=== PATIENT | female | born 1960 | race Caucasian/White ===

== ENCOUNTER 2019-12-16 00:59 | Inpatient (IN) | payer MEDICARE, BC, SELFPAY ==
[2019-12-16] VITALS (58 sets, daily range): BP systolic 74–126; BP diastolic 36–72; PULSE 61–90; RESP 14–31; TEMP 36.6–39.6; O2SAT 93–100; BMI 51.5
--- NOTE | ~2019-12-16 | XR_ITS ---
XR chest 1V portable DATE: 12/16/2019 01:47 INDICATION: Fever TECHNIQUE: Portable AP chest on 12/16/2019 at 0146 hours COMPARISON: None FINDINGS: Right internal jugular central venous catheter tip overlies the right brachiocephalic vein. No pneumothorax. There is moderate elevation of the right leaf of the diaphragm. Heart size is not optimally evaluated on AP projection because of magnification. Pulmonary vascular r edistribution is noted, which may indicate mild pulmonary venous hypertension in this upright radiogr aph. No pulmonary infiltrate or consolidation, pleural effusion or pulmonary vascular congestion or p neumothorax is evident. Osteopenia. IMPRESSION: Right internal jugular central venous catheter in right brachiocephalic vein Pulmonary vascular redistribution may indicate mild pulmonary venous hypertension Elevated right diaphragm No active pulmonary disease is evident Reviewed, dictated and finalized at location A. IMPRESSION: Right internal jugular central venous catheter in right brachioceph alic vein Pulmonary vascular redistribution may indicate mild pulmonary venous hypertensi on Elevated right diaphragm No active pulmonary disease is evident
--- NOTE | ~2019-12-16 | US_ITS ---
EXAMINATION: US venous doppler LE RT DATE: 12/16/2019 13:58 INDICATION: Right lower limb pain. TECHNIQUE: Grayscale ultrasound images without and with compression and Doppler ultrasound images of the right lower extremity veins were obtained. COMPARISON: None. FINDINGS: The visualized portions of right common femoral vein, profunda (deep) femoral vein, femoral vein, pop liteal vein, peroneal veins, posterior tibial veins, and greater saphenous vein outflow are patent. IMPRESSION: 1. No deep venous thrombosis. Reviewed, dictated and finalized at location A.
--- NOTE | 2019-12-16 01:07 | ED.WEAKNESS ---
HPI - Weakness General Chief complaint: Weakness Stated complaint: weak History of Present Illness HPI Narrative: 58 yo female w/ h/o lymphoma currently on chemotherapy presents for weakness. She was driving back home after a road trip when she became lethargic, weak, and confused. He daughter thought that she may just be tired from the drive and they stopped at a hotel. Her symptoms did not improve with rest. On arrival here she was found to have a temperature of 103. Her daughter does report recent UTI and previous episodes of fever where no source was found. No abdominal pain, nausea, vomiting, chest pain, SOB, cough, rash. Related Data Home Medications Medication Instructions Recorded Confirmed Unable to Obtain Home Medications 12/16/19 12/16/19 Allergies Allergy/AdvReac Type Severity Reaction Status Date / Time morphine Allergy Difficulty Verified 12/16/19 01:14 Breathing Review of Systems Review of Systems: All systems reviewed & are unremarkable except as noted in HPI and below Cardiovascular: Cardiovascular: Denies chest pain Respiratory: Respiratory: Denies dyspnea and Denies wheezing Gastrointestinal: Gastrointestinal: Denies abdominal pain, Denies diarrhea, Denies nausea and Denies vomiting Genitourinary: Genitourinary: Denies hematuria and Denies dysuria Neurologic: Denies headache(s) and Denies focal weakness [facility] Past Medical History Medical History (Updated 12/16/19 @ 05:32 by Napoleon Karimi MD) Lymphoma Surgical History Surgical History (Updated 12/16/19 @ 04:23 by Napoleon Karimi MD) History of splenectomy Social History Social History (Updated 12/16/19 @ 04:23 by Napoleon Karimi MD) Smoking status: Never smoker Exam Const: General: alert Nutritional Appearance: obese morbidly obese Orientation/consciousness: patient oriented x3 HENMT: Head: normal to inspection Eyes: Conjunctivae: conjunctivae normal Pupils: Equal, round and reactive pupils present EOM: EOMs intact bilaterally Neck: Neck: normal visual inspection Resp: Effort & Inspection: normal respiratory effort Auscultation: clear to auscultation bilaterally Cardio: Rate: regular rate Rhythm: regular rhythm GI: GI Palp: Yes Soft to palpation and No Tenderness to palpation present (GI) Skin: General skin exam: normal color Rashes: no rashes Wounds: no wounds Neuro: General: patient oriented x3, moves all extremities and CN's II-XI intact bilaterally Other: occasionally stumbles over words, but no significant deficit Extrem: General: edema bilateral Course Vital Signs Vital signs: Vital Signs Temperature 39.6 C H 12/16/19 00:57 Pulse Rate 90 12/16/19 00:57 Respiratory Rate 20 12/16/19 00:57 Blood Pressure 93/40 L 12/16/19 00:57 Pulse Oximetry 94 12/16/19 00:57 Temperature 37.9 C H 12/16/19 03:19 Pulse Rate 76 12/16/19 05:20 Respiratory Rate 21 H 12/16/19 05:20 Blood Pressure 100/51 L 12/16/19 05:20 Pulse Oximetry 95 12/16/19 05:20 MDM - Weakness MDM Narrative Medical decision making narrative: Sepsis, UTI, pneumonia, dehydration, COVID-19, other She has no symptoms localizing infection. UA not convincing for infection. No obvious infiltrate on x-ray. BP trending down despite adequate hydration. I will start broad spectrum antibiotics given the severity of her illness and immune compromised state. I will start levophed o maintain blood pressure and admit to the ICU. Case discussed with Dr. Swan Medical Records Attestation: I reviewed the patient's medical records. Lab Data Attestation: I reviewed the patient's lab results. Result diagrams: 12/16/19 01:35 12/16/19 01:34 Labs: Lab Results 12/16/19 12/16/19 12/16/19 Range/Units 01:34 01:34 01:35 WBC 14.2 H (4.5-10.0) K/mm3 RBC 3.11 L (4.2-5.4) M/mm3 Hgb 10.2 L (12.0-15.0) g/dL Hct 30.8 L (37.0-47.0) % MCV 99.0 (80-100) fl
--- NOTE | 2019-12-16 01:21 | ECG_ITS ---
Measurements Intervals [place] Rate: 89 P: 5 IN: 186 QRS: 17 QRSD: 106 T: 7 QT: 320 QTc: 391 Interpretive Statements SINUS RHYTHM BASELINE ARTIFACT- I, II, III, AVR, AVL, AVF, V1-V6 BORDERLINE ECG Electronically Signed On 12-16-2019 7:04:49 CDT by Zaki Mendez D.O.
[2019-12-16 01:46] LABS: Basophils Absolute Auto 0.1 K/mm3 (0.0-0.1); Basophils Percent Auto 0.4 % (0.2-1.2); Eosinophils Percent Auto 0.1 % (0-4.4); Hematocrit 30.8 % (37.0-47.0); Hemoglobin 10.2 g/dL (12.0-15.0); Immature Granulocyte Absolute 0.89 K/mm3 (0.00-0.031); Immature Granulocyte Percent A 6.3 % (0-0.5); Lymphocytes Absolute Auto 3.26 K/mm3 (0.9-3.2); Mean Corpuscular HGB Conc 33.1 g/dl (32-36); Mean Corpuscular Hemoglobin 32.8 pg (26-34); Mean Platelet Volume 10.9 fl (7.4-10.4); Monocytes Absolute Auto 0.6 K/mm3 (0.1-0.6); Monocytes Percent Auto 4.3 % (2.6-8.5); Neutrophils Absolute Auto 9.4 K/mm3 (1.3-6.7); Neutrophils Percent Auto 65.9 % (45.5-73.1); Nucleated Red Blood Cells Absolute Auto 0.1 K/mm3 (0.0-0.012); Nucleated Red Blood Cells Perc 0.7 % (0.0-0.2); Platelet Count Result 227 k/mm3 (150-375); Red Blood Count 3.11 M/mm3 (4.2-5.4); Red Cell Distribution Width 15.6 % (11.5-14.5); White Blood Count 14.2 K/mm3 (4.5-10.0)
[2019-12-16 01:56] LABS: INR 1.1; Partial Thromboplastin Time 26.9 SECONDS (22.3-36.8); Prothrombin Time 14.2 Seconds (11.1-14.7)
[2019-12-16 01:59] LABS: Lactic Acid Reflex 0.9 mmol/L (0.7-2.1)
[2019-12-16 02:00] LABS: Anisocytosis 1+ (NORMAL); Platelet Estimate Adequate (Adequate)
[2019-12-16 02:02] LABS: Alanine Aminotransferase 22 U/L (4-35); Albumin Level 3.5 g/dL (3.5-5.1); Alkaline Phosphatase 61 U/L (38-126); Anion Gap 13.4 mmol/L (7-16); Aspartate Amino Transferase 43 U/L (14-36); Blood Urea Nitrogen 46 mg/dL (7-17); CRP 8.7 mg/dL (<1.0); Calcium 8.5 mg/dL (8.4-10.2); Carbon Dioxide 18 mmol/L (22-30); Chloride 106 mmol/L (98-107); Estimated CRCL calculation 33 ml/min; Estimated Glomerular Filt Rate 22; Glucose 160 mg/dL (65-105); Potassium 4.4 mmol/L (3.4-5.0); Sodium 133 mmol/L (137-145)
[2019-12-16 02:24] LABS: Add Urine Microscopic? YES; Appearance Urine Clear (Clear); Bilirubin Urine Negative (Negative); Blood Urine 1+ (Negative); Color Urine Yellow (Yellow); Glucose Urine UA Negative (Negative); Ketones Urine Negative (Negative); Leukocyte Esterase Ur Negative LEU/UL (Negative); Nitrate Urine Negative (Negative); Protein Urine Negative (Negative); Specific Grav Ur 1.012 (1.001-1.035); Squamous Epithelial Cell Urine Rare /hpf (Few); Urobilinogen Urine Negative mg/dL (<2.0)
--- NOTE | 2019-12-16 03:42 | PC.NURSE ---
1000 MLS OF EMS NS INFUSED COMPLETELY W/O DIFFICULTY, 3000 MLS OF ED NS INFUSED W/O DIFFICULTY, IN ADDITION 100 MLS OF OFIRMEV 1 GRAM TO EQUAL 4100 TOTAL MLS INFUSED AT THE TIME OF THIS NOTE BEING WRITTEN.
[2019-12-16] MEDS: NOREPINEPHRINE 8 MG/D5W 250 ML 8 MG/250 ML BAG 9.4 MG IV CONT (04:44)
[2019-12-16] MEDS: LACTATED RINGERS 1,000 ML 75 ML IV CONT ×2 (11:00→23:25)
--- NOTE | 2019-12-16 11:34 | ADMGEN ---
This patient, Elzbieta Wynn, was admitted to Intensive Care Unit-9. Patient/family oriented to hospital policies and general routines including ID bracelet, bed and alarms, visiting hours, pain management, procedures, bathroom and other care routines, personal items, smoking policy, room service/diet, and visiting hours. Valuables list has been completed. Information on how to activate the Rapid Response Team has been discussed. Patient/Family are encouraged to report perceived risks to care and to ask questions if they do not understand what they are told or what they should do.
--- NOTE | 2019-12-16 12:55 | WPDCNINT ---
Assessment and Plan Assessment and plan (1) Septic shock: Code(s): A41.9 - Sepsis, unspecified organism; R65.21 - Severe sepsis with septic shock Status: Acute Assessment and Plan: patient presented with leukocytosis, fevers, confusion, lethargy and weakness - she was hypotensive with fevers of 103.0 in the ED - was given IV fluids per sepsis protocol - currently on maintenance IV fluids - likely source right lower extremity cellulitis - continue Zosyn and vancomycin, patient on oral chemotherapy - patient on Levophed, maintain mean arterial pressures greater than 65 mmHg - blood cultures have been obtained (2) Cellulitis of right lower extremity: Code(s): L03.115 - Cellulitis of right lower limb Status: Acute Assessment and Plan: cellulitis of right lower extremity, continue antibiotics as above - will obtain venous Dopplers to rule out DVT as patient has lymphoma and is on chemotherapy, also has been traveling in a car and driving long distance [place] to [place] (3) Acute worsening of stage 3 chronic kidney disease: Code(s): N18.3 - Chronic kidney disease, stage 3 (moderate) Status: Acute Assessment and Plan: acute on chronic kidney disease likely related to septic shock, hypotension, hypovolemia - patient received adequate amount of IV fluids in the ER, continue maintenance IV fluid - monitor urine output, Wade catheter inserted - continue to monitor renal function, electrolytes (4) Lymphoma: Code(s): C85.90 - Non-Hodgkin lymphoma, unspecified, unspecified site Status: Acute Assessment and Plan: patient on ibrutinib, will hold chemotherapy for now - follows up with Dr.Bilal Merino, oncologist in [place], [place] (5) Essential hypertension: Code(s): I10 - Essential (primary) hypertension Status: Acute Assessment and Plan: hold home carvedilol, furosemide as patient currently on pressors (6) DVT prophylaxis: Code(s): Z29.9 - Encounter for prophylactic measures, unspecified Status: Acute Additional Plan discussed with patient at length and updated her with her condition and plan. I answered all questions code status: Full code critical care time spent: 44 minutes Due to a high probability of clinically significant, life threatening deterioration, the patient required my highest level of preparedness to intervene emergently and I personally spent this critical care time directly and personally managing the patient. This critical care time included obtaining a history; examining the patient; pulse oximetry; ordering and review of studies; arranging urgent treatment with development of a management plan; evaluation of patient's response to treatment; frequent reassessment; and discussions with other providers. It was exclusive of separately billable procedures and treating other patients and teaching time. Please see Assessment and Plan section and the rest of the note for further information on patient assessment and treatment Doorkeeper Consult Note Consult date: 12/16/19 Time Seen: 10:51 Reason for consult: septic shock, right lower extremity cellulitis HPI: Elzbieta Wynn is a 58 year old female with significant past medical history lymphoma on daily oral chemotherapy, stage 3-4 chronic kidney disease, essential hypertension, history of gastric bypass, appendectomy, cholecystectomy and splenectomy presented to the ED on 12/16/2019 in the early hours with weakness, lethargy, confusion. Patient seen in the ICU upon arrival, is awake, alert, oriented x3, nonfocal, able also all questions appropriately at this time. She stated that she was traveling from [place] to [place] to see her sister. She was wearing a mask all the time and observing social distant single as much as possible. She states none of the people she was in contact were sick. Patient was traveling back from [place] to [facility] [place]
[2019-12-16] MEDS: HEPARIN SODIUM 5,000 UNITS/ML VIAL 5000 UNITS SUB-Q ×2 (16:06→20:41)
[2019-12-16] MEDS: CENTRAL LINE FLUSH 10 ML IV PUSH ×3 (16:06→20:41)
--- NOTE | 2019-12-16 16:42 | PM.IMHP ---
H&P: HPI History of Present Illness Chief complaint: Septic shock Narrative: Elzbieta Wynn is a 58 year old female was in [facility] yesterday sunday evening was visiting cousin on sunday, trembling and shaking was not feeling good talking garble, felt her R leg feels sore up to the knee felt warm Pt not having any cough, slight fever in er 103. denies sob tested for the covid. bp is low at the moment fluctuations low. Seen by ICU MD already. Awaiting BC and covid tests. Pt complains of pain when she bends her knee and R leg. Another daughter lives in [place], recent [place] in [place] in [place]. was told no damage to her heart, pt has history of Stage 4 CKD. Pt feels dehydrated. Nephrology is been consulted. 2nd bout of lymphoma tried monoclonal antibodies pt is just on imbruvica everyday now. Pt states she was meant to a ctscan. Pt would like to leave on to get her ct scan in [place] under her oncology. Pt states she does not feel like she has the covid, thinks fever is from her leg. Review of Systems Review of Systems: All systems reviewed & are unremarkable except as noted in HPI and below PMFSH Past Medical History Medical History Lymphoma Surgical History Surgical History History of splenectomy Social History Social History Smoking status: Never smoker Second hand tobacco smoke exposure: No Alcohol intake: never Substance use: never Substance use type: other Gender identity (if verbalized by the patient): Female Spiritual care concerns: No Meds Home Medications and Allergies Home Medications Medication Instructions Recorded Confirmed Type allopurinol 300 mg PO DAILY 12/16/19 12/16/19 History aspirin 81 mg PO DAILY 12/16/19 12/16/19 History calcitriol 0.25 mcg PO DAILY 12/16/19 12/16/19 History carvedilol 25 mg PO TID 12/16/19 12/16/19 History duloxetine 30 mg PO DAILY 12/16/19 12/16/19 History furosemide 20 mg PO DAILY 12/16/19 12/16/19 History gabapentin 300 mg PO BID 12/16/19 12/16/19 History hydroxyzine HCl 25 mg PO QPM PRN 12/16/19 12/16/19 History ibrutinib [Imbruvica] 420 mg PO 1130 12/16/19 12/17/19 History lorazepam 0.5 mg PO DIRECTED PRN 12/16/19 12/16/19 History mirabegron [Myrbetriq] 50 mg PO DAILY 12/16/19 12/16/19 History pantoprazole 40 mg PO DAILY 12/16/19 12/16/19 History prochlorperazine maleate 10 mg PO DIRECTED PRN 12/16/19 12/16/19 History vitamin [id number] acid 1 tablet PO DAILY 12/16/19 12/16/19 History Allergies Allergy/AdvReac Type Severity Reaction Status Date / Time morphine Allergy Difficulty Verified 12/16/19 01:14 Breathing Vital Signs Vital Signs - 24 hr 12/16/19 00:57 12/16/19 03:19 12/16/19 04:00 Temperature 39.6 C H 37.9 C H Pulse Rate 90 82 74 Respiratory Rate 20 24 H 20 Blood Pressure 93/40 L 82/36 L 74/38 L Pulse Oximetry 94 95 95 12/16/19 04:01 12/16/19 04:44 12/16/19 05:02 Temperature Pulse Rate 74 80 76 Respiratory Rate 22 H Blood Pressure 87/43 L Pulse Oximetry 96 12/16/19 05:08 12/16/19 05:15 12/16/19 05:20 Temperature Pulse Rate 78 75 76 Respiratory Rate 20 21 H Blood Pressure 90/48 L 100/51 L Pulse Oximetry 93 95 12/16/19 05:30 12/16/19 05:45 12/16/19 05:50 Temperature Pulse Rate 76 77 77 Respiratory Rate 22 H 20 22 H Blood Pressure 98/48 L Pulse Oximetry 95 96 95 12/16/19 06:12 12/16/19 06:15 12/16/19 06:30 Temperature 37.6 C H Pulse Rate 77 76 81 Respiratory Rate 23 H 24 H 26 H Blood Pressure 111/47 L 106/48 L Pulse Oximetry 98 96 96 12/16/19 06:31 12/16/19 06:41 12/16/19 06:45 Temperature Pulse Rate 79 78 77 Respiratory Rate 21 H 23 H Blood Pressure 106/48 L 103/48 L Pulse Oximetry 100 99 97 12/16/19 06:46 12/16/19 06:50 12/16/19 06:51 Temperature Pulse Rate 83 80 80 Respiratory Rat
[2019-12-16] MEDS: GABAPENTIN 300 MG CAPSULE PO (20:41)
[2019-12-16] MEDS: NOREPINEPHRINE 8 MG/D5W 250 ML 8 MG/250 ML BAG 7.5 MG IV CONT (23:24)
[2019-12-17] VITALS (11 sets, daily range): BP systolic 90–108; BP diastolic 43–79; PULSE 59–81; RESP 16–26; TEMP 36.6–37.1; O2SAT 95–100
[2019-12-17] MEDS: HEPARIN SODIUM 5,000 UNITS/ML VIAL 5000 UNITS SUB-Q ×3 (05:04→20:36)
[2019-12-17] MEDS: CENTRAL LINE FLUSH 10 ML IV PUSH ×2 (05:05→20:36)
[2019-12-17 05:22] LABS: Basophils Percent Auto 0.3 % (0.2-1.2); Eosinophils Absolute Auto 0.2 K/mm3 (0-0.3); Eosinophils Percent Auto 1.4 % (0-4.4); Hematocrit 25.2 % (37.0-47.0); Hemoglobin 8.4 g/dL (12.0-15.0); Immature Granulocyte Absolute 0.34 K/mm3 (0.00-0.031); Immature Granulocyte Percent A 2.4 % (0-0.5); Lymphocytes Absolute Auto 3.23 K/mm3 (0.9-3.2); Mean Corpuscular HGB Conc 33.3 g/dl (32-36); Mean Corpuscular Hemoglobin 32.7 pg (26-34); Mean Corpuscular Volume 98.1 fl (80-100); Mean Platelet Volume 10.6 fl (7.4-10.4); Monocytes Absolute Auto 0.9 K/mm3 (0.1-0.6); Monocytes Percent Auto 6.1 % (2.6-8.5); Neutrophils Absolute Auto 9.4 K/mm3 (1.3-6.7); Neutrophils Percent Auto 66.8 % (45.5-73.1); Nucleated Red Blood Cells Perc 0.3 % (0.0-0.2); Platelet Count Result 184 k/mm3 (150-375); Red Blood Count 2.57 M/mm3 (4.2-5.4); Red Cell Distribution Width 15.8 % (11.5-14.5)
[2019-12-17 05:45] LABS: Alanine Aminotransferase 21 U/L (4-35); Albumin Level 2.6 g/dL (3.5-5.1); Alkaline Phosphatase 48 U/L (38-126); Anion Gap 9.6 mmol/L (7-16); Aspartate Amino Transferase 60 U/L (14-36); Bilirubin,Total 0.8 mg/dL (0.2-1.3); Blood Urea Nitrogen 49 mg/dL (7-17); Calcium 8.1 mg/dL (8.4-10.2); Carbon Dioxide 19 mmol/L (22-30); Chloride 109 mmol/L (98-107); Estimated CRCL calculation 30 ml/min; Estimated Glomerular Filt Rate 19; Glucose 118 mg/dL (65-105); Magnesium 1.8 mg/dL (1.6-2.3); Phosphorus 5.4 mg/dL (2.5-4.5); Potassium 3.6 mmol/L (3.4-5.0); Sodium 134 mmol/L (137-145)
[2019-12-17] MEDS: allopurinoL 300 MG TABLET PO (08:11)
[2019-12-17] MEDS: GABAPENTIN 300 MG CAPSULE PO ×2 (08:11→20:36)
[2019-12-17] MEDS: CYANOCOBALAMIN 500 MCG TABLET PO (08:11)
[2019-12-17] MEDS: ASPIRIN 81 MG CHEWABLE TABLET PO (08:11)
[2019-12-17] MEDS: DULoxetine HCL 30 MG CAPSULE.DR PO (08:11)
[2019-12-17] MEDS: FOLIC ACID 0.4 MG TABLET PO (08:12)
[2019-12-17] MEDS: calcitrioL 0.25 MCG CAPSULE PO (08:12)
--- NOTE | 2019-12-17 08:14 | PC.NURSE ---
Pt on 2mcg/min of Levophed when assessing. Levophed placed on pause. Previous RN didn't chart the decrease on the MAR from 4 to 2
--- NOTE | 2019-12-17 11:08 | PCOTNOTE ---
Attempted OT evaluation. Hold per nursing, will continue to attempt.
--- NOTE | 2019-12-17 11:09 | PCPTNOTE ---
Attempted PT eval. Per Lucy GUNN, stated to hold therapy today.
[2019-12-17] MEDS: LACTATED RINGERS 1,000 ML 75 ML IV CONT (11:41)
--- NOTE | 2019-12-17 12:02 | PHAR ---
HOME MED VERIFIED = [facility] [id number] IBRUVICA 420 MG TABS 1 TAB PO DAILY.
[2019-12-17 14:41] LABS: SARS-CoV-2 RNA PCR Negative
--- NOTE | 2019-12-17 14:45 | WPDINTPN ---
Progress Note: A&P Assessment and Plan (1) Septic shock: Code(s): A41.9 - Sepsis, unspecified organism; R65.21 - Severe sepsis with septic shock Status: Acute Assessment and Plan: patient presented with leukocytosis, fevers, confusion, lethargy and weakness - she was hypotensive with fevers of 103.0 in the ED - was given IV fluids per sepsis protocol - currently on maintenance IV fluids - likely source right lower extremity cellulitis - continue Zosyn and vancomycin, patient on oral chemotherapy - OFF LEVOPHED since early this morning - blood and urine cultures are negative so far (2) Cellulitis of right lower extremity: Code(s): L03.115 - Cellulitis of right lower limb Status: Acute Assessment and Plan: cellulitis of right lower extremity, continue antibiotics as above - right lower extremity venous Dopplers were negative for DVT (3) Acute worsening of stage 3 chronic kidney disease: Code(s): N18.3 - Chronic kidney disease, stage 3 (moderate) Status: Acute Assessment and Plan: acute on chronic kidney disease likely related to septic shock, hypotension, hypovolemia - patient received adequate amount of IV fluids in the ER, continue maintenance IV fluid - monitor urine output, Wade catheter inserted - continue to monitor renal function, electrolytes (4) Lymphoma: Code(s): C85.90 - Non-Hodgkin lymphoma, unspecified, unspecified site Status: Acute Assessment and Plan: patient on ibrutinib, will hold chemotherapy for now - follows up with Dr.Bilal Merino, oncologist in [place], [place] (5) Essential hypertension: Code(s): I10 - Essential (primary) hypertension Status: Acute Assessment and Plan: hold home carvedilol, furosemide as patient currently on pressors (6) DVT prophylaxis: Code(s): Z29.9 - Encounter for prophylactic measures, unspecified Status: Acute Assessment and Plan: heparin SQ Additional Plan discussed with patient at length and updated her with her condition and plan. I answered all questions code status: Full code critical care time spent: 33 minutes Due to a high probability of clinically significant, life threatening deterioration, the patient required my highest level of preparedness to intervene emergently and I personally spent this critical care time directly and personally managing the patient. This critical care time included obtaining a history; examining the patient; pulse oximetry; ordering and review of studies; arranging urgent treatment with development of a management plan; evaluation of patient's response to treatment; frequent reassessment; and discussions with other providers. It was exclusive of separately billable procedures and treating other patients and teaching time. Please see Assessment and Plan section and the rest of the note for further information on patient assessment and treatment Subjective Date/time seen: 12/17/19 14:45 Interval history: Reason for consult: septic shock, right lower extremity cellulitis - 12/16/2019 and right lower extremity venous Doppler: negative for DVT 12/17/2019: Patient seen examined, off Levophed early this morning. Blood pressures remain stable. Patient is awake, alert, oriented x3, nonfocal. Able to answer questions appropriately. Patient denies any chest pain, shortness of breath, abdominal pain, nausea vomiting at this time. Just states that she has getting a little stiff because of her arthritis. Urine output has been adequate. Patient is afebrile, kidney function. C-reactive protein is 32.0. SARS-CoV-2 PCR PCR pending Review of Systems Review of Systems: All systems reviewed & are unremarkable except as noted in HPI and below Exam Const: General: comfortable and no acute distress HENMT: Mouth: Yes moist mucous membranes Eyes: Sclera: sclerae normal Pupils: Equal, round and reactive pupils present N
--- NOTE | 2019-12-17 15:56 | PM.IMPN ---
Progress Note: A&P Assessment and Plan (1) Essential hypertension: Code(s): I10 - Essential (primary) hypertension Status: Acute Assessment and Plan: Hold bp medications Pt bp is low Secondary to septic shock (2) Lymphoma: Code(s): C85.90 - Non-Hodgkin lymphoma, unspecified, unspecified site Status: Acute Assessment and Plan: pt has 2 relapses in the past pt is on imbruvica (3) Acute worsening of stage 3 chronic kidney disease: Code(s): N18.3 - Chronic kidney disease, stage 3 (moderate) Status: Acute Assessment and Plan: Likely secondary to dehydration continue to watch kidney function Creat is 2.6 today (4) DVT prophylaxis: Code(s): Z29.9 - Encounter for prophylactic measures, unspecified Status: Acute Assessment and Plan: Pt is on heparin (5) Cellulitis of right lower extremity: Code(s): L03.115 - Cellulitis of right lower limb Status: Acute Assessment and Plan: likely cause of septic shock covid less bc but pt has history of lymphoma so is being investigated Venous doppler is negative (6) Septic shock: Code(s): A41.9 - Sepsis, unspecified organism; R65.21 - Severe sepsis with septic shock Status: Acute Assessment and Plan: Admitted with septic shock in ED Bp still remains to be low continue to watch continue vasopressors and iv fluids continue iv zosyn and iv vancomycin Subjective Date/time seen: 12/17/19 15:56 Interval history: 58 year old female admitted with shakes, fever and low bps admitted to icu for septic shock pt has history of lymphoma and appears to have right leg cellultis awaiting covid test very pleasant lady seen in icu not complaining of cough or fever or sob today ongoing leg pain Review of Systems Respiratory: Respiratory: Denies chest congestion, Denies cough and Denies dyspnea Musculoskeletal: Comments: legs are sore Exam Narrative: Exam Narrative: Pt seen Pt does not appear in any respiratory distress, Both legs swollen and red right more than left, no wounds or breaks in the skin Temp Pulse Resp BP Pulse Ox 38.2 C H 76 14 93/52 L 99 12/16/19 16:00 12/16/19 16:00 12/16/19 16:00 12/16/19 16:00 12/16/19 16:00 Temp Pulse Resp BP Pulse Ox Objective Data Vital Signs Vital Signs: Vital Signs - 24 hr 12/16/19 16:00 12/16/19 18:00 12/16/19 20:00 Temperature 38.2 C H 37.2 C Pulse Rate 76 87 77 Respiratory Rate 14 14 30 H Blood Pressure 93/52 L 96/57 L 108/45 L Pulse Oximetry 99 95 96 12/16/19 22:00 12/16/19 23:17 12/16/19 23:24 Temperature 36.6 C Pulse Rate 71 Respiratory Rate 17 Blood Pressure 94/60 L 104/62 Pulse Oximetry 98 12/17/19 00:00 12/17/19 02:00 12/17/19 04:00 Temperature 36.6 C Pulse Rate 67 62 60 Respiratory Rate 16 16 26 H Blood Pressure 93/43 L 90/52 L 96/53 L Pulse Oximetry 95 96 98 12/17/19 06:00 12/17/19 08:00 12/17/19 08:13 Temperature 37.1 C Pulse Rate 71 75 75 Respiratory Rate 17 20 Blood Pressure 108/61 103/49 L 103/49 L Pulse Oximetry 99 98 12/17/19 10:00 12/17/19 12:00 12/17/19 14:00 Temperature 36.8 C Pulse Rate 78 79 75 Respiratory Rate 20 17 16 Blood Pressure 100/46 L 107/61 97/56 L Pulse Oximetry 98 98 98 Intake/Output Intake/Output: Intake & Output 12/14/19 12/15/19 12/16/19 12/17/19 23:59 23:59 23:59 23:59 Intake Total 7080 3201 Output Total 900 2400 Balance 6180 801 Meds/Results Medications: Active Medications Generic Name Dose Route Start Last Admin Trad
--- NOTE | 2019-12-17 18:42 | PC.NURSE ---
Dr. Orellana notified of patient negative Covid-19 results
--- NOTE | 2019-12-17 20:57 | ADMGEN ---
This patient, Elzbieta Wynn, was admitted to Medical Room 342-01. Patient/family oriented to hospital policies and general routines including ID bracelet, bed and alarms, visiting hours, pain management, procedures, bathroom and other care routines, personal items, smoking policy, room service/diet, and visiting hours. Valuables list has been completed. Information on how to activate the Rapid Response Team has been discussed. Patient/Family are encouraged to report perceived risks to care and to ask questions if they do not understand what they are told or what they should do.
--- NOTE | 2019-12-17 21:51 | PC.NURSE ---
Patient requested that her home medications be locked in the closet in her room. She states they are very expensive and would like to make sure they are near her at all times. I have locked them in the closet in room 342 where she is admitted. She verified the medications were locked in the room as I put them in there.
[2019-12-18 04:03] LABS: Basophils Percent Auto 0.3 % (0.2-1.2); Eosinophils Absolute Auto 0.3 K/mm3 (0-0.3); Eosinophils Percent Auto 2.7 % (0-4.4); Hematocrit 24.7 % (37.0-47.0); Hemoglobin 8.3 g/dL (12.0-15.0); Immature Granulocyte Absolute 0.29 K/mm3 (0.00-0.031); Immature Granulocyte Percent A 2.4 % (0-0.5); Lymphocytes Absolute Auto 3.68 K/mm3 (0.9-3.2); Lymphocytes Percent Auto 30.9 % (18.3-44.2); Mean Corpuscular HGB Conc 33.6 g/dl (32-36); Mean Corpuscular Hemoglobin 32.7 pg (26-34); Mean Corpuscular Volume 97.2 fl (80-100); Mean Platelet Volume 11.1 fl (7.4-10.4); Monocytes Absolute Auto 0.7 K/mm3 (0.1-0.6); Monocytes Percent Auto 5.8 % (2.6-8.5); Neutrophils Absolute Auto 6.9 K/mm3 (1.3-6.7); Neutrophils Percent Auto 57.9 % (45.5-73.1); Nucleated Red Blood Cells Absolute Auto 0.1 K/mm3 (0.0-0.012); Nucleated Red Blood Cells Perc 0.6 % (0.0-0.2); Platelet Count Result 189 k/mm3 (150-375); Red Blood Count 2.54 M/mm3 (4.2-5.4); Red Cell Distribution Width 15.9 % (11.5-14.5); White Blood Count 11.9 K/mm3 (4.5-10.0)
[2019-12-18] MEDS: CENTRAL LINE FLUSH 20 ML IV PUSH (04:15)
[2019-12-18 04:18] LABS: Alanine Aminotransferase 20 U/L (4-35); Albumin Level 2.7 g/dL (3.5-5.1); Alkaline Phosphatase 48 U/L (38-126); Anion Gap 10.6 mmol/L (7-16); Aspartate Amino Transferase 48 U/L (14-36); Bilirubin,Total 0.6 mg/dL (0.2-1.3); Blood Urea Nitrogen 50 mg/dL (7-17); Calcium 8.3 mg/dL (8.4-10.2); Carbon Dioxide 20 mmol/L (22-30); Chloride 110 mmol/L (98-107); Estimated CRCL calculation 30 ml/min; Estimated Glomerular Filt Rate 19; Glucose 74 mg/dL (65-105); Phosphorus 5.2 mg/dL (2.5-4.5); Potassium 3.6 mmol/L (3.4-5.0); Sodium 137 mmol/L (137-145)
[2019-12-18 05:26] VITALS: BP 95/42; PULSE 64; RESP 18; TEMP 37.1; O2SAT 100
[2019-12-18] MEDS: HEPARIN SODIUM 5,000 UNITS/ML VIAL 5000 UNITS SUB-Q (05:27)
[2019-12-18] MEDS: CENTRAL LINE FLUSH 10 ML IV PUSH ×3 (05:28→13:50)
[2019-12-18] MEDS: FOLIC ACID 0.4 MG TABLET PO (08:45)
[2019-12-18] MEDS: allopurinoL 300 MG TABLET PO (08:45)
[2019-12-18] MEDS: GABAPENTIN 300 MG CAPSULE PO (08:45)
[2019-12-18] MEDS: ASPIRIN 81 MG CHEWABLE TABLET PO (08:45)
[2019-12-18] MEDS: CYANOCOBALAMIN 500 MCG TABLET PO (08:46)
[2019-12-18] MEDS: calcitrioL 0.25 MCG CAPSULE PO (08:47)
[2019-12-18] MEDS: DULoxetine HCL 30 MG CAPSULE.DR PO (08:47)
[2019-12-18 08:48] VITALS: RESP 18; O2SAT 100
[2019-12-18] MEDS: PANTOPRAZOLE 40 MG TABLET PO (08:48)
--- NOTE | 2019-12-18 12:22 | PM.DS ---
DS: Admitting Diagnosis Admitting Diagnosis Admitting Diagnosis: Sepsis, unspecified organism DS: Discharge Diagnosis Discharge Diagnosis (1) Essential hypertension: Code(s): I10 - Essential (primary) hypertension Status: Chronic Assessment and Plan: Pt to continue bp medications at home (2) Lymphoma: Code(s): C85.90 - Non-Hodgkin lymphoma, unspecified, unspecified site Status: Acute Assessment and Plan: Pt has 2 relapses in the past Pt is on imbruvica follows in [place] (3) Acute worsening of stage 3 chronic kidney disease: Code(s): N18.3 - Chronic kidney disease, stage 3 (moderate) Status: Acute Assessment and Plan: Creat is 2.6 on discharge (4) Cellulitis of right lower extremity: Code(s): L03.115 - Cellulitis of right lower limb Status: Acute Assessment and Plan: Cellulitis likely cause of septic shock clearing well on iv zosyn and iv vancomycin Pt is discharged on augmentin. (5) Septic shock: Code(s): A41.9 - Sepsis, unspecified organism; R65.21 - Severe sepsis with septic shock Status: Resolved Assessment and Plan: Admitted with septic shock in ED Septic shock is better now DS: Summary Time Spent with Patient Time attestation: Total time spent providing and/or coordinating discharge services:40 minutes on day of discharge Exam Narrative: Exam Narrative: Morbid obesity Pt does not appear in any respiratory distress, RRR Chest is clear Right leg not swollen mild patch of erythema left, R leg soft NT Temp Pulse Resp BP Pulse Ox 38.2 C H 76 14 93/52 L 99 12/16/19 16:00 12/16/19 16:00 12/16/19 16:00 12/16/19 16:00 12/16/19 16:00 Temp Pulse Resp BP Pulse Ox DS: Data Data Completed and Pending Labs on day of discharge: Labs from last 24 hours 12/18/19 12/18/19 12/16/19 03:57 03:57 04:30 WBC 11.9 H RBC 2.54 L Hgb 8.3 L Hct 24.7 L MCV 97.2 MCH 32.7 MCHC 33.6 RDW 15.9 H Plt Count 189 MPV 11.1 H Immature Gran % (Auto) 2.4 H Neut % (Auto) 57.9 Lymph % (Auto) 30.9 [place] % (Auto) 5.8 Eos % (Auto) 2.7 Baso % (Auto) 0.3 Lymph # (Auto) 3.68 H [place] # (Auto) 0.7 H Eos # (Auto) 0.3 Baso # (Auto) 0.0 Abs Immat Gran (auto) 0.29 H Absolute Neuts (auto) 6.9 H Absolute Nucleated RBC 0.1 H Nucleated RBC % 0.6 H Sodium 137 Potassium 3.6 Chloride 110 H Carbon Dioxide 20 L Anion Gap 10.6 BUN 50 H Creatinine 2.60 H Estim Creat Clear Calc 30 Estimated GFR 19 L Glucose 74 Calcium 8.3 L Phosphorus 5.2 H Magnesium 2.0 Total Bilirubin 0.6 AST 48 H ALT 20 Alkaline Phosphatase 48 Total Protein 5.0 L Albumin 2.7 L SARS-CoV-2 RNA (RT-PCR) Negative Preliminary micro results at discharge 12/16/19 01:34 Blood Culture - Preliminary Blood 12/16/19 01:34 Blood Culture - Preliminary Blood Discharge Plan Discharge Attending physician on discharge: Maryanne Orellana Consulting providers: ; Lizzie Swan ; Zaki Mendez ; Joseph Lopez ; Wai Tubbs V. Discharging Clinician: Maryanne Orellana Anticipated Discharge Date/Time: 12/18/19 12:18 Patient Disposition: Home, Self-Care Activity: as tolerated Diet: regular Patient Instructions: Antibiotic Form, Cellulitis (DC), Sepsis (DC), Weakness (DC) Stand Alone Forms: General Discharge Information Follow-up/Referrals: PHYSICIAN NOT ON STAFF,NONSTAFF [Primary Care Provider] - (Follow up CT
[2019-12-18] MEDS: HEPARIN SOD FLUSH 500 UNITS/5 ML SYRINGE IV PUSH (13:49)
[2019-12-18 14:12] VITALS: BP 124/62; PULSE 61; RESP 18; TEMP 36.4; O2SAT 100
== END 2019-12-18 14:50 | disposition home or self-care (01) | DRG 871 ==
LOC: ANHED 05:32 → ANHICU 12:11 → ANH3MED 12-18 01:32 → ANHICU 12-19 12:45
PROVIDERS: Internal Medicine; Admitting Provider Internal Medicine; Emergency Provider Emergency Medicine; Visit Provider Family Medicine
DX: A41.9 Sepsis, unspecified organism (principal); R65.21 Severe sepsis with septic shock; L03.115 Cellulitis of right lower limb; N39.0 Urinary tract infection, site not specified; C85.90 Non-Hodgkin lymphoma, unspecified, unspecified site; Z68.43 Body mass index [BMI] 50.0-59.9, adult; Z11.59 Encounter for screening for other viral diseases; E66.01 Morbid (severe) obesity due to excess calories; I12.9 Hypertensive chronic kidney disease with stage 1 through stage 4 chronic kidney disease, or unspecified chronic kidney disease; N18.3 Chronic kidney disease, stage 3 (moderate); E86.0 Dehydration; Z90.81 Acquired absence of spleen; Z90.49 Acquired absence of other specified parts of digestive tract; Z98.84 Bariatric surgery status
CPT/HCPCS: 36415; 71045; 80053; 81001; 83605; 83735; 84100; 85025; 85610; 85730; 86140; 87040; 87086; 87635; 93005; 93971; 96365; 96367; 96375; 97161; 97165; 99291; A9270; C9803; J0131; J1642; J1644; J2543; J3370; J7030; J7120; U0003